=== PATIENT | male | born 1980 | race Caucasian/White ===

== ENCOUNTER 2021-07-23 13:51 | Emergency (ER) | payer OTHER ==
[~2021-07-23] VITALS: Ht 185.4 cm; Wt 79.4 kg
[2021-07-23] MEDS ORDERED: MEDROL 4MG DOSEP4 MG PO (16:31)
[2021-07-23] MEDS ORDERED: ZPAK PO (16:31)
[2021-07-23 17:27] LABS: CORONAVIRUS 2019 SARS-COV-2 NEGATIVE (NEGATIVE); INFLUENZA A NAA NEGATIVE (NEGATIVE)
== END 2021-07-23 17:24 | disposition home or self-care (01) ==
LOC: FER 13:51
PROVIDERS: Nurse Practitioner Family
DX: J02.9 Acute pharyngitis, unspecified (principal); Z20.822 Contact with and (suspected) exposure to COVID-19
CPT/HCPCS: 87880; 99283; U0002